=== PATIENT | male | born 1975 | race Caucasian/White ===

== ENCOUNTER 2016-12-03 06:09 | Emergency (ER) | payer MEDICARE ==
[2016-12-03 06:19] VITALS: BP 121/77
[2016-12-03] MEDS ORDERED: HYDROMORPHONE HCL INJ/PF 2 MG/ML AMPULE IM ONE (07:01)
[2016-12-03] MEDS ORDERED: DEXAMETHASONE SOD PHOS INJ 10 MG/1 ML VIAL IM ONE (07:01)
[2016-12-03] MEDS ORDERED: KETOROLAC TROMETHAMINE 60 MG/2 ML SDV IM ONE (07:01)
--- NOTE | 2016-12-03 08:05 | ER Document Report ---
ED General - General Chief Complaint: Back Pain Stated Complaint: BACK PAIN Time Seen by Provider: 12/03/16 06:14 Mode of Arrival: Ambulatory Information source: Patient Notes: 41-year-old male history of chronic low back pain with radiation down the right leg presents with complaints of a back pain that is going down the left leg this time. Patient notes it occurred after he coughed. He denies any numbness at all denies any weakness states that his only pain. Patient denies any other cauda equina concerns Used to be on narcotics has not been on any in the past 7 years TRAVEL OUTSIDE OF THE [place] IN LAST 30 DAYS: No - HPI Onset: Just prior to arrival Onset/Duration: Sudden Quality of pain: Sharp Severity: Moderate Pain Level: 3 Associated symptoms: Body/muscle aches, Nonproductive cough Exacerbated by: Movement Relieved by: Denies Similar symptoms previously: Yes Recently seen / treated by doctor: Yes - Related Data Allergies/Adverse Reactions: gabapentin [From Neurontin] Allergy (Verified 12/03/16 06:19) iodine Allergy (Verified 12/03/16 06:19) "all nerve pills" Allergy (Uncoded 12/03/16 06:19) Past Medical History - Social History Smoking Status: Current Every Day Smoker Cigarette use (# per day): Yes - Cigar Chew tobacco use (# tins/day): No Smoking Education Provided: No Family History: Reviewed & Not Pertinent Review of Systems - Review of Systems Notes: REVIEW OF SYSTEMS: CONSTITUTIONAL : Denies fever, chills, or sweats. Denies recent illness. EENT: Denies eye, ear, throat, or mouth pain or symptoms. Denies nasal or sinus congestion or discharge. Denies throat, tongue, or mouth swelling or difficulty swallowing. CARDIOVASCULAR: Denies chest pain. Denies palpitations or racing or irregular heart beat. Denies ankle edema. RESPIRATORY: Denies cough, cold, or chest congestion. Denies shortness of breath, difficulty breathing, or wheezing. GASTROINTESTINAL: Denies abdominal pain or distention. Denies nausea, vomiting , or diarrhea. Denies blood in vomitus, stools, or per rectum. Denies black, tarry stools. Denies constipation. GENITOURINARY: Denies difficulty urinating, painful urination, burning, frequency, blood in urine, or discharge. MUSCULOSKELETAL: Admits to low back pain radiating to his left leg SKIN: Denies rash, lesions or sores. HEMATOLOGIC : Denies easy bruising or bleeding. LYMPHATIC: Denies swollen, enlarged glands. NEUROLOGICAL: Denies confusion or altered mental status. Denies passing out or loss of consciousness. Denies dizziness or lightheadedness. Denies headache. Denies weakness or paralysis or loss of use of either side. Denies problems with gait or speech. Denies sensory loss, numbness, or tingling. Denies seizures. PSYCHIATRIC: Denies anxiety or stress. Denies depression, suicidal ideation, or homicidal ideation. ALL OTHER SYSTEMS REVIEWED AND NEGATIVE. Dictation was performed using [employer] voice recognition software PHYSICAL EXAMINATION: GENERAL: Well-appearing, well-nourished and in no acute distress. HEAD: Atraumatic, normocephalic. EYES: Pupils equal round and reactive to light, extraocular movements intact, sclera anicteric, conjunctiva are normal. ENT: Nares patent, oropharynx clear without exudates. Moist mucous membranes. NECK: Normal range of motion, supple without lymphadenopathy LUNGS: Breath sounds clear to auscultation bilaterally and equal. No wheezes rales or rhonchi. HEART: Regular rate and rhythm without murmurs ABDOMEN: Soft, nontender, nondistended abdomen. No guarding, no rebound. No masses appreciated. Musculoskeletal: Patient is able to lay on his side, he has tenderness midline with no bony involvement, he admits spasming of his flank NEUROLOGICAL: Cranial nerves grossly intact. Normal speech, normal gait. Normal sensory, motor exams PSYCH: Normal mood, normal affect. SKIN: Warm, Dry, normal turgor, no rashes or lesions noted. Physical Exam - Vital signs Vitals: Temp Pulse Resp BP Pulse Ox 98.3 F 66 16 121/77 96 12/03/16 06:17 12/03/16 06:17 12/03/16 06:17 12/03/16 06:17 12/03/16 06:17 Course - Re-evaluation Re-evalutation: 12/03/16 08:08 Given that patient has no neurological deficits I do not believe an MRI is appropriate at this time, he does have obvious muscle spasms and was treated with steroids anti-inflammatories and pain control and states he feels much better already. Patient will be treated for his cough as well, we discussed concerns for low back pain this is just pain rather than any neurological deficits 12/03/16 08:09 After performing a Medical Screening Examination, I estimate there is LOW risk for EXPANDING OR RUPTURED ABDOMINAL AORTIC ANEURYSM, CAUDA EQUINA SYNDROME, EPIDURAL MASS LESION, or HERNIATED DISK CAUSING SEVERE SPINAL STENOSIS, thus I consider the discharge disposition reasonable. I have reevaluated this patient multiple times and no significant life threatening changes are noted. The patient and I have discussed the diagnosis and risks, and we agree with discharging home and close follow-up. We also discussed returning to the Emergency Department immediately if new or worsening symptoms occur with the understanding that symptoms and presentations can change. We have discussed the symptoms which are most concerning (e.g., saddle anesthesia, urinary or bowel incontinence or retention, changing or worsening pain) that necessitate immediate return. - Vital Signs Vital signs: Temp Pulse Resp BP Pulse Ox 98.3 F 66 16 121/77 96 12/03/16 06:17 12/03/16 06:17 12/03/16 06:17 12/03/16 06:17 12/03/16 06:17 Discharge - Discharge Clinical Impression: Nonproductive cough Acute low back pain Qualifiers: Back pain laterality: left Sciatica presence: with sciatica Sciatica laterality : sciatica of left side Qualified Code(s): M54.42 - Lumbago with sciatica, left side Condition: Stable Disposition: HOME, SELF-CARE Instructions: Muscle Strain ([facility]), Low Back Pain ([facility]), Pain Medication Injection ([facility]) Prescriptions: Ketorolac Tromethamine [Toradol 10 mg Tablet] 10 mg PO Q6HP PRN #20 tablet PRN Reason: Benzonatate [Tessalon Perle 100 mg Capsule] 100 mg PO Q8HP PRN #40 cap PRN Reason: Prednisone 60 mg PO DAILY 5 Days Referrals: ELVIRA HERBERT NP-C [Primary Care Provider] - Follow up tomorrow
[2016-12-03] MEDS ORDERED: BENZONATATE 100 MG CAPSULE PO ONE (08:06)
== END 2016-12-03 10:20 | disposition home or self-care (01) ==
LOC: ER 06:09
DX: R05 Cough (principal); M54.42 Lumbago with sciatica, left side; M79.1 Myalgia; F17.290 Nicotine dependence, other tobacco product, uncomplicated
CPT/HCPCS: 99283; 96372; A9270; J1885; J1170; J1100

== ENCOUNTER → 2017-02-27 | Outpatient (CLI) | payer MEDICARE | LOC: LAB 13:51 | PROVIDERS: ATTEND Internal Medicine Hematology & Oncology | DX: J96.11 Chronic respiratory failure with hypoxia (principal); Z53.8 Procedure and treatment not carried out for other reasons ==

== ENCOUNTER → 2017-03-04 | Outpatient (CLI) | payer MEDICARE ==
[2017-03-04 12:06] LABS: ARTERIAL BLOOD BASE EXCESS -0.4 mmol/L; ARTERIAL BLOOD O2 SATURATION 95.3 % (94-98)
== END ==
LOC: OD 11:10
PROVIDERS: ATTEND Internal Medicine Hematology & Oncology
DX: G47.00 Insomnia, unspecified (principal); J96.11 Chronic respiratory failure with hypoxia
CPT/HCPCS: 36600; 82803